=== PATIENT | male | born 1960 | race Caucasian/White ===

== ENCOUNTER 2017-10-27 11:45 | Emergency (ER) | payer BC ==
[2017-10-27 12:46] VITALS: BP 134/88
--- NOTE | 2017-10-27 13:10 | UC ---
Respiratory Complaint HPI - HPI Summary HPI Summary: 57 year old male with no significant pmhx here with congestion, cough and right earache. Symptoms started 10 days ago with cough and congestion along with subjective fever. Reports right earache since yesterday. No n/v/d or any other complaints. - History of Current Complaint Chief Complaint: UCGeneralIllness Stated Complaint: CONGESTION,COUGH,EARS Time Seen by Provider: 10/27/17 12:50 Onset/Duration: Sudden Onset Timing: Constant Pain Intensity: 2 Character: Cough: Productive Aggravating Factors: Nothing Alleviating Factors: Nothing Associated Signs And Symptoms: Positive: Fever, URI, Nasal Congestion. Negative : Dyspnea, Wheezing, Hoarseness - Allergies/Home Medications Allergies/Adverse Reactions: Allergies Allergy/AdvReac Type Severity Reaction Status Date / Time No Known Allergies Allergy Verified 10/27/17 12:42 Home Medications: Home Medications Ibuprofen TAB* [Advil TAB*] 200 mg PO Q6H PRN 10/27/17 [History Confirmed ] PMH/Surg Hx/FS Hx/Imm Hx Previously Healthy: Yes - Surgical History Surgical History: Yes Surgery Procedure, Year, and Place: 1980s right femur, pin right arm, left lower leg surgeries - Social History Alcohol Use: Rare Substance Use Type: None Smoking Status (MU): Light Every Day Tobacco Smoker Type: Cigarettes Amount Used/How Often: 1/2 ppd Review of Systems Constitutional: Fever Skin: Negative Eyes: Negative ENT: Negative, Nasal Discharge, Sinus Congestion Respiratory: Cough Cardiovascular: Negative Gastrointestinal: Negative Genitourinary: Negative Motor: Negative Neurovascular: Negative Musculoskeletal: Negative Neurological: Negative Psychological: Negative All Other Systems Reviewed And Are Negative: Yes Physical Exam Triage Information Reviewed: Yes Appearance: Well-Appearing, No Pain Distress Vital Signs: Initial Vital Signs Temp 37.0 C 10/27/17 12:40 Pulse 66 10/27/17 12:40 Resp 20 10/27/17 12:40 BP 134/88 10/27/17 12:40 Pulse Ox 98 10/27/17 12:40 Eye Exam: Normal ENT Exam: Normal ENT: Positive: Pharyngeal erythema, Nasal congestion, Nasal drainage. Negative : TM bulging, TM dull, TM red, Tonsillar swelling, Tonsillar exudate, Trismus Dental Exam: Normal Neck exam: Normal Respiratory Exam: Normal Cardiovascular Exam: Normal Abdominal Exam: Normal Musculoskeletal Exam: Normal UC Diagnostic Evaluation - Laboratory O2 Sat by Pulse Oximetry: 98 Respiratory Course/Dx - Differential Dx/Diagnosis Differential Diagnosis/HQI/PQRI: Bronchitis, Influenza, Laryngitis, Lower Resp Infection, Sinusitis Provider Diagnoses: bronchitis + active smoker. Azithro. Counseling about smoking cessation Discharge - Sign-Out/Discharge Documenting (check all that apply): Discharge/Admit/Transfer - Discharge Plan Condition: Good Disposition: HOME Prescriptions: Azithromyxin THELMA (NF) [Z-Thelma (Zithromax) 250 mg tabs #6] 2 tab PO .TODAY, THEN 1 DAILY #6 tab Patient Education Materials: Acute Bronchitis (ED) Forms: *Work Release Referrals: Non Staff,Doctor [Primary Care Provider] - - Billing Disposition and Condition Condition: GOOD Disposition: HOME
== END 2017-10-27 13:08 | disposition home or self-care (01) ==
LOC: UCCORT 11:45
DX: J40 Bronchitis, not specified as acute or chronic (principal); F17.210 Nicotine dependence, cigarettes, uncomplicated
CPT/HCPCS: 99202; G0463

== ENCOUNTER 2017-11-09 13:15 | Emergency (ER) | payer BC ==
[2017-11-09 13:31] VITALS: BP 163/96
--- NOTE | 2017-11-09 13:41 | UC ---
Ear Complaint HPI - HPI Summary HPI Summary: Pt c/o right ear discomfort and muffled sounds X 1 week. - History of Current Complaint Chief Complaint: UCEar Stated Complaint: RIGHT EAR COMPLAINT Time Seen by Provider: 11/09/17 13:35 Hx Obtained From: Patient Onset/Duration: Gradual Onset, Lasting Days, Still Present Severity Initially: Mild Severity Currently: Mild Pain Intensity: 0 Associated Signs/Symptoms: Positive: Hearing Loss, URI Symptoms - Allergies/Home Medications Allergies/Adverse Reactions: Allergies Allergy/AdvReac Type Severity Reaction Status Date / Time No Known Allergies Allergy Verified 11/09/17 13:30 PMH/Surg Hx/FS Hx/Imm Hx Previously Healthy: Yes - Surgical History Surgical History: Yes Surgery Procedure, Year, and Place: 1980s right femur, pin right arm, left lower leg surgeries - Family History Known Family History: Positive: Cardiac Disease - Social History Occupation: Employed Full-time Lives: With Family Alcohol Use: Rare Substance Use Type: Marijuana Substance Use Comment - Amount & Last Used: rarely Smoking Status (MU): Light Every Day Tobacco Smoker Type: Cigarettes Amount Used/How Often: 1 ppd Have You Smoked in the Last Year: Yes Review of Systems Constitutional: Negative Skin: Negative Eyes: Negative ENT: Ear Ache Respiratory: Negative Cardiovascular: Negative Gastrointestinal: Negative Genitourinary: Negative Motor: Negative Neurovascular: Negative Musculoskeletal: Negative Neurological: Negative Psychological: Negative Is Patient Immunocompromised?: No All Other Systems Reviewed And Are Negative: Yes Physical Exam Triage Information Reviewed: Yes Appearance: Well-Appearing Vital Signs: Initial Vital Signs Temp 98.4 F 11/09/17 13:26 Pulse 66 11/09/17 13:26 Resp 18 11/09/17 13:26 BP 163/96 11/09/17 13:26 Pulse Ox 97 11/09/17 13:26 Vital Signs Reviewed: Yes Eye Exam: Normal ENT Exam: Other ENT: Positive: TM dull, Other - inner ear canal erythema Neck exam: Normal Respiratory: Positive: No respiratory distress Musculoskeletal Exam: Normal Neurological Exam: Normal Psychological Exam: Normal Skin Exam: Normal Ear Complaint Course/Dx - Differential Dx/Diagnosis Differential Diagnosis/HQI/PQRI: Otitis Externa, URI Provider Diagnoses: Right otitis externa Discharge - Sign-Out/Discharge Documenting (check all that apply): Discharge/Admit/Transfer - Discharge Plan Condition: Stable Disposition: HOME Prescriptions: Ciproflox/Dexameth OTIC.SUSP* [Ciprodex OTIC.SUSP*] 3 drop RIGHT EAR Q8H #1 btl Patient Education Materials: Otitis Externa (ED) Referrals: [facility] [place] PHYS[facility]IAN REFERRAL [Outside] Non Staff,Doctor [Primary Care Provider] - - Billing Disposition and Condition Condition: STABLE Disposition: HOME
== END 2017-11-09 13:50 | disposition home or self-care (01) ==
LOC: UCCORT 13:15
DX: H60.91 Unspecified otitis externa, right ear (principal); F17.210 Nicotine dependence, cigarettes, uncomplicated
CPT/HCPCS: 99212; G0463

== ENCOUNTER 2018-06-01 08:47 | Emergency (ER) | payer BC ==
[2018-06-01 09:15] VITALS: BP 153/89
--- NOTE | 2018-06-01 10:03 | ED ---
Respiratory - HPI Summary HPI Summary: 58 yr old male with the complaint of coughing for 2-3 weeks, mostly dry and hacking, but with some scant yellow sputum at times. No blood. He has had some chills. No chest pain. He has mild SOB. He reports mild hoarse voice with this cough for the past 10 days. The patient is a smoker. He denies dizziness , weight loss. - History of Current Complaint Chief Complaint: UCRespiratory Stated Complaint: CONGESTION COUGH Time Seen by Provider: 06/01/18 09:31 Pain Intensity: 4 - Allergy/Home Medications Allergies/Adverse Reactions: Allergies Allergy/AdvReac Type Severity Reaction Status Date / Time No Known Allergies Allergy Verified 06/01/18 09:09 Home Medications: Home Medications Ibuprofen TAB* [Motrin TAB* 800 MG] 800 mg PO Q8H PRN 06/01/18 [History Confirmed 06/01/18] PMH/Surg Hx/FS Hx/Imm Hx Endocrine/Hematology History: Denies: Hx Diabetes Cardiovascular History: Denies: Hx Hypertension, Hx Pacemaker/ICD Respiratory History: Reports: Other Respiratory Problems/Disorders - fat embolism 1997 History: Denies: Hx Renal Disease Musculoskeletal History: Reports: Hx Arthritis, Hx Orthopedic Injury - left tib/ fib fx, left toe amp, left femur fx, right radius fx Sensory History: Reports: Hx Contacts or Glasses, 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 Denies: Hx Hearing Aid Opthamlomology History: Reports: Hx Contacts or Glasses, 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 Psychiatric History: Denies: Hx Panic Disorder - Surgical History Surgery Procedure, Year, and Place: left tib/fib ORIF, bone graft, skin graft and left 3rd toe amp-1987 [facility]; left femur IM [facility] 1997 [place]; right radius ORIF, 2005 [facility] [place] Infectious Disease History: No Infectious Disease History: Denies: Traveled Outside the [place] in Last 30 Days - Family History Known Family History: Positive: Cardiac Disease - Social History Occupation: Employed Full-time Alcohol Use: Rare Substance Use Type: Reports: Marijuana Substance Use Comment - Amount & Last Used: Rare Smoking Status (MU): Heavy Every Day Tobacco Smoker Type: Cigarettes Amount Used/How Often: 1 PPD Length of Time of Smoking/Using Tobacco: Since Age 16 (quit for 8-10 Years) Have You Smoked in the Last Year: Yes Review of Systems Positive: Chills, Fatigue Positive: Cough All Other Systems Reviewed And Are Negative: Yes Physical Exam Triage Information Reviewed: Yes Vital Signs On Initial Exam: Initial Vitals Temp Pulse Resp BP Pulse Ox 98.2 F 60 20 153/89 98 06/01/18 09:08 06/01/18 09:08 06/01/18 09:08 06/01/18 09:08 06/01/18 09:08 Vital Signs Reviewed: Yes Appearance: Positive: Well-Appearing, No Pain Distress Skin: Positive: Warm, Skin Color Reflects Adequate Perfusion Head/Face: Positive: Normal Head/Face Inspection Eyes: Positive: EOMI ENT: Positive: Pharynx normal, Nasal congestion, TMs normal, Hoarse voice - mild. Negative: Muffled voice Neck: Positive: Nontender Respiratory/Lung Sounds: Positive: Clear to Auscultation, Breath Sounds Present Cardiovascular: Positive: RRR. Negative: Murmur Abdomen Description: Positive: Nontender Musculoskeletal: Positive: Strength/ROM Intact Neurological: Positive: Sensory/Motor Intact, Alert, Oriented to Person Place, Time, CN Intact II-III - [place] Coma Scale Best Eye Response: 4 - Spontaneous Best Motor Response: 6 - Obeys Commands Best Verbal Response: 5 - Oriented Coma Scale Total: 15 Diagnostics - Vital Signs Vital Signs Temp Pulse Resp BP Pulse Ox 06/01/18 09:08 98.2 F 60 20 153/89 98 - Laboratory Lab Statement: Any lab studies that have been ordered have been reviewed, and results considered in the medical decision making process. - Radiology chest PA/LAt Radiology Interpretation Completed By: Radiologist - NAD per rad Disposition - Course Course Of Treatment: 58 yr old male with cough 2-3 weeks, hoarsness 10 days. Will Rx prednisone, continue the albuterol MDI. FU with PMD referral for BP and coughing. He has been told that if he is not better in the next 5-7 days that he needs to go to the ER for further work up and evaluation. - Diagnoses Provider Diagnoses: Cough, Hypertension Discharge - Sign-Out/Discharge Documenting (check all that apply): Patient Departure All imaging exams completed and their final reports reviewed: Yes - Discharge Plan Condition: Good Disposition: HOME Prescriptions: Benzonatate CAP* [Tessalon 100 MG CAP*] 100 mg PO TID #10 cap predniSONE TAB* [Deltasone 20 MG TAB*] 40 mg PO DAILY #8 tab Patient Education Materials: Laryngitis (ED), Acute Bronchitis (ED), Hypertension (ED) Referrals: No Primary Care Phys,NOPCP [Primary Care Provider] - [facility] [place] PHYSICIAN REFERRAL [Outside] - 1 Day Additional Instructions: You need to follow up with the primary care referral given you today. Your blood pressure needs to be rechecked in the next 2-3 days. You need to go to the ER if your symptoms do not improve in the next 5 days. Do not delay following up with your referrals in the time frame given. - Billing Disposition and Condition Condition: GOOD Disposition: Home
== END 2018-06-01 10:18 | disposition home or self-care (01) ==
LOC: UCCORT 08:47
DX: R05 Cough (principal); I10 Essential (primary) hypertension; F17.210 Nicotine dependence, cigarettes, uncomplicated
CPT/HCPCS: 71046; 99212; G0463